=== PATIENT | male | born 1940 | race Caucasian/White ===

== ENCOUNTER 2016-06-18 18:25 | Emergency (ER) | payer MEDICARE, OTHER ==
[2016-06-18 18:34] VITALS: RESP 18
--- NOTE | 2016-06-18 18:35 | ED ---
General Adult HPI - General Chief complaint: Fall Stated complaint: Fall Time Seen by Provider: 06/18/16 18:30 Source: patient, RN notes reviewed, old records reviewed Mode of arrival: EMS Limitations: no limitations - History of Present Illness Initial comments: This is a 76-year-old male ER for evaluation. Patient coming in the air status. Infold snow. Patient was walking to his car and tripped on some ice, did fall forward hitting right arm trying to catch himself and landing on his face. Patient complains of facial pain and mild headache and bleeding from his lip. No displaced teeth, no loss of consciousness no blood thinners - Related Data Home Medications Medication Instructions Recorded Confirmed Aspirin 325 mg PO DAILY 06/18/16 06/18/16 Atenolol [Tenormin] 25 mg PO BID 06/18/16 06/18/16 Atorvastatin [Lipitor] 20 mg PO HS 06/18/16 06/18/16 Esomeprazole Magnesium [NexIUM] 40 mg PO DAILY 06/18/16 06/18/16 Losartan/Hydrochlorothiazide 1 tab PO HS 06/18/16 06/18/16 [Losartan-Hctz 100-25 mg Tab] Allergies Allergy/AdvReac Type Severity Reaction Status Date / Time midazolam [From Versed] Allergy Rash/Hives Verified 06/18/16 18:34 Review of Systems ROS Statement: Those systems with pertinent positive or pertinent negative responses have been documented in the HPI. ROS Other: All systems not noted in ROS Statement are negative. Past Medical History Past Medical History: Hypertension, Seizure Disorder History of Any Multi-Drug Resistant Organisms: None Reported Past Surgical History: Coronary Bypass/CABG Past Psychological History: No Psychological Hx Reported Smoking Status: Former smoker Past Alcohol Use History: None Reported Past Drug Use History: None Reported General Exam Limitations: no limitations General appearance: alert, in no apparent distress Head exam: Present: atraumatic, normocephalic, normal inspection Eye exam: Present: normal appearance, PERRL, EOMI. Absent: scleral icterus, conjunctival injection, periorbital swelling ENT exam: Present: normal exam, mucous membranes moist Neck exam: Present: normal inspection. Absent: tenderness, meningismus, lymphadenopathy Respiratory exam: Present: normal lung sounds bilaterally. Absent: respiratory distress, wheezes, rales, rhonchi, stridor Cardiovascular Exam: Present: regular rate, normal rhythm, normal heart sounds. Absent: systolic murmur, diastolic murmur, rubs, gallop, clicks GI/Abdominal exam: Present: soft, normal bowel sounds. Absent: distended, tenderness, guarding, rebound, rigid Extremities exam: Present: normal inspection, full ROM, normal capillary refill. Absent: tenderness, pedal edema, joint swelling, calf tenderness Back exam: Present: normal inspection Neurological exam: Present: alert, oriented X3, CN II-XII intact Psychiatric exam: Present: normal affect, normal mood Skin exam: Present: warm, dry, intact, normal color. Absent: rash Course Vital Signs 06/18/16 06/18/16 18:29 20:36 Temperature 97.3 F L Pulse Rate 67 93 Respiratory 18 18 Rate Blood Pressure 167/77 140/82 O2 Sat by Pulse 98 97 Oximetry Procedures - Laceration Laceration #1 Consent Obtained: verbal consent Time Out Performed: Yes Indication: laceration Site: lip Size (cm): 1 Description: linear Depth: simple, single layer Anesthetic Used: lidocaine 1% Pre-repair: irrigated extensively Type of Sutures: vicryl Size of Sutures: 4-0 Technique: simple, interrupted Patient Tolerated Procedure: well Medical Decision Making - Medical Decision Making Signed formality here for evaluation of fall, facial injury, closed head injury , no loss of consciousness, CT negative, lip laceration is repaired and patient can be discharged home - Radiology Data Radiology results: report reviewed (CT brain suicide patient was negative for injury, x-ray right wrist right hand negative for fracture), image reviewed Disposition Clinical Impression: Fall, Head injury, Lip laceration Disposition: HOME SELF-CARE Condition: Good Instructions: Fall Prevention for Older Adults (ED) Referrals: Evan Matthews MD [Primary Care Provider] - 1-2 days
--- NOTE | 2016-06-18 19:54 | CT ---
EXAMINATION TYPE: CT brain elizabeth wo con DATE OF EXAM: 06/18/2016 7:44 PM COMPARISON: 08/03/2009 HISTORY: PT STATES OF FALL TODAY. NO LOC. LACERATION TO MAXILLA AREA. CT DLP: 1955.3 mGycm Automated exposure control for dose reduction was used. TECHNIQUE: CT scan of the head and cervical spine are performed without contrast. FINDINGS: There is mild cerebral cortical atrophy. There is no mass effect nor midline shift. There is no sign of intracranial hemorrhage. There is patchy hypodensity in the periventricular white josé er. The calvarium is intact. Cervical vertebra have normal alignment. There is mild degenerative disc space narrowing from C4 to C 7 with some spurring of the endplates. There is mild facet arthropathy in the mid and lower cervical spine. I see no fracture. Skull base is intact. IMPRESSION: There is cerebral atrophy and chronic small vessel ischemia but shows some progression compared to . No acute intracranial abnormality. No fracture. Spondylotic changes in the cervical spine. No fracture seen.
--- NOTE | 2016-06-18 19:57 | CT ---
EXAMINATION TYPE: CT facial bones wo con DATE OF EXAM: 06/18/2016 7:44 PM COMPARISON: 10/10/2011 HISTORY: PT STATES OF FALL TODAY. NO LOC. LACERATION TO MAXILLA AREA. CT DLP: 1955.3 mGycm Automated exposure control for dose reduction was used. TECHNIQUE: CT scan of the sinuses is performed without contrast, axial images are obtained, coronal r eformatted images are also reviewed. FINDINGS: The mandibular ring is intact. Nasal bone appears intact. Zygomatic arches appear normal. The orbital margins appear intact. There is no evidence of blowout fracture. There is fairly normal a eration of the paranasal sinuses. Maxilla is intact. IMPRESSION: Negative CT scan of the facial bones. No fracture.
[2016-06-18] MEDS ORDERED: MORPHINE SULFATE 10 MG/ML SYRINGE IM STA (20:08)
--- NOTE | 2016-06-18 20:37 | XR ---
EXAMINATION TYPE: XR chest 1V DATE OF EXAM: 06/18/2016 8:33 PM COMPARISON: 08/03/2009 HISTORY: Chest pain TECHNIQUE: Single frontal view of the chest is obtained. FINDINGS: Heart and mediastinum are normal. Lungs are clear of infiltrate. There is no heart failure . There are sternal wires. Costophrenic angles are clear. IMPRESSION: No active cardiopulmonary disease. No change.
--- NOTE | 2016-06-18 20:39 | XR ---
EXAMINATION TYPE: XR hand complete RT DATE OF EXAM: 06/18/2016 8:33 PM COMPARISON: NONE HISTORY: Pain TECHNIQUE: 3 views FINDINGS: I see no fracture nor dislocation. Metacarpals are intact. There are no erosions. There is mild vascular calcification. IMPRESSION: No acute abnormality of the right hand.
--- NOTE | 2016-06-18 20:40 | XR ---
EXAMINATION TYPE: XR wrist complete RT DATE OF EXAM: 06/18/2016 8:33 PM COMPARISON: NONE HISTORY: Pain TECHNIQUE: 4 views FINDINGS: I see no fracture nor dislocation. Carpal bones are intact. Joint spaces are fairly normal. There is vascular calcification. IMPRESSION: Negative right wrist exam.
--- NOTE | 2016-06-18 20:41 | XR ---
EXAMINATION TYPE: XR pelvis AP view DATE OF EXAM: 06/18/2016 8:33 PM COMPARISON: NONE HISTORY: Pain TECHNIQUE: Single view FINDINGS: Pelvic ring is intact. Proximal femurs and hip joints are intact. Sacroiliac joints appear normal. There are multiple vascular surgical clips on the left side. IMPRESSION: No fracture.
[2016-06-18 21:21] VITALS: BP 134/74; PULSE 74; TEMP 96.9
== END 2016-06-18 21:21 | disposition home or self-care (01) ==
LOC: EC 18:25
DX: S01.511A Laceration without foreign body of lip, initial encounter (principal); I10 Essential (primary) hypertension; Z95.1 Presence of aortocoronary bypass graft; Z88.8 Allergy status to other drugs, medicaments and biological substances; Z87.891 Personal history of nicotine dependence; Z79.82 Long term (current) use of aspirin; Z79.899 Other long term (current) drug therapy; W01.0XXA Fall on same level from slipping, tripping and stumbling without subsequent striking against object, initial encounter
CPT/HCPCS: 99284; 96372; 12011; 71010; 72170; 73110; 73130; 72125; 70486; 70450; J2270

== ENCOUNTER → 2017-08-18 | Outpatient (CLI) | payer MEDICARE, OTHER ==
--- NOTE | 2017-08-18 12:53 | XR ---
EXAMINATION TYPE: XR chest 2V DATE OF EXAM: 08/18/2017 COMPARISON: 06/18/2016 TECHNIQUE: PA and lateral views submitted. HISTORY: Cough FINDINGS: The lungs are clear and there is no pneumothorax, pleural effusion, or focal pneumonia. Postsurgica l changes noted. Diffuse osteopenia with arthropathy of the shoulders. Partial eventration of the rig ht hemidiaphragm. Degenerative change of the spine. IMPRESSION: 1. No acute process.
== END | disposition home or self-care (01) ==
LOC: RADXRMAIN 12:17
PROVIDERS: ATTEND Family Medicine
DX: R06.02 Shortness of breath (principal)
CPT/HCPCS: 71046

== ENCOUNTER → 2017-10-01 | Outpatient (CLI) | payer MEDICARE, OTHER | LOC: PTMAIN 09:46 | PROVIDERS: ATTEND Otolaryngology | DX: K21.9 Gastro-esophageal reflux disease without esophagitis (principal) | CPT/HCPCS: 31579 ==

== ENCOUNTER 2018-06-04 08:27 | Emergency (ER) | payer MEDICARE, OTHER ==
[2018-06-04 08:40] VITALS: BP 158/90; PULSE 71; RESP 18; TEMP 97.9
--- NOTE | 2018-06-04 09:15 | ED ---
General Adult HPI - General Chief complaint: Head Injury Stated complaint: HEAD INJURY FROM FALL Time Seen by Provider: 06/04/18 08:42 Source: patient, RN notes reviewed, old records reviewed Mode of arrival: ambulatory Limitations: no limitations - History of Present Illness Initial comments: Patient is a 78-year-old male who presents emergency department today after falling off a six-foot ladder while cutting tree limbs. He reports this happened on , 2 days ago. Patient states that yesterday he followed up with Dr. Quispe who examined his elbow and arm. His main complaint was right elbow pain. He had x-rays done at their office and these were all negative for fractures. He is some couple small superficial abrasions are" Band -Aids over the arm. Patient was encouraged to come to emergency department at that time however Patient stated he would like to wait and came this morning. Patient states that he has been having headache at night and pain when resting his head back. He reports that he fells completely on his back. He denies any vomiting episodes. He reports he may have had a brief loss consciousness. He denies any neck pain. - Related Data Home Medications Medication Instructions Recorded Confirmed Atenolol [Tenormin] 25 mg PO BID 06/18/16 06/04/18 Atorvastatin [Lipitor] 20 mg PO HS 06/18/16 06/04/18 Losartan/Hydrochlorothiazide 1 tab PO HS 06/18/16 06/04/18 [Losartan-Hctz 100-25 mg Tab] Aspirin EC [Ecotrin Low Dose] 81 mg PO DAILY 06/04/18 06/04/18 Previous Rx's Medication Instructions Recorded Acetaminophen Tab [Tylenol Tab] 500 mg PO Q6H #20 tablet 06/04/18 Meclizine [Antivert] 25 mg PO TID #20 tab 06/04/18 Ondansetron HCl [Zofran] 4 mg PO TID #12 tablet 06/04/18 Allergies Allergy/AdvReac Type Severity Reaction Status Date / Time midazolam [From Versed] Allergy Rash/Hives Verified 06/04/18 09:26 Review of Systems ROS Statement: Those systems with pertinent positive or pertinent negative responses have been documented in the HPI. ROS Other: All systems not noted in ROS Statement are negative. Past Medical History Past Medical History: Hypertension, Seizure Disorder History of Any Multi-Drug Resistant Organisms: None Reported Past Surgical History: Coronary Bypass/CABG Past Psychological History: No Psychological Hx Reported Smoking Status: Former smoker Past Alcohol Use History: None Reported Past Drug Use History: None Reported General Exam - General Exam Comments Initial Comments: Well-appearing alert and oriented 78-year-old male. No significant distress. Alert and active. Limitations: no limitations General appearance: alert, in no apparent distress Head exam: Present: atraumatic, normocephalic, normal inspection, other ( Tenderness over the posterior scalp. Small abrasion that is scarred and healed at this time. No significant hematoma noted.) Eye exam: Present: normal appearance, PERRL, EOMI. Absent: scleral icterus, conjunctival injection, periorbital swelling ENT exam: Present: normal exam Neck exam: Present: normal inspection. Absent: tenderness, meningismus, lymphadenopathy Respiratory exam: Present: normal lung sounds bilaterally. Absent: respiratory distress, wheezes, rales, rhonchi, stridor Cardiovascular Exam: Present: regular rate, normal rhythm, normal heart sounds. Absent: systolic murmur, diastolic murmur, rubs, gallop, clicks GI/Abdominal exam: Present: soft, normal bowel sounds. Absent: distended, tenderness, guarding, rebound, rigid Extremities exam: Present: normal inspection, full ROM, normal capillary refill. Absent: tenderness, pedal edema, joint swelling, calf tenderness Back exam: Present: normal inspection Neurological exam: Present: alert, oriented X3, CN II-XII intact Psychiatric exam: Present: normal affect, normal mood Course Vital Signs 06/04/18 08:33 Temperature 97.9 F Pulse Rate 71 Respiratory 18 Rate Blood Pressure 158/90 O2 Sat by Pulse 99 Oximetry Medical Decision Making - Medical Decision Making Patient is 78-year-old male presents today he is up-to-date on his foot ladder. He complains of posterior head pain with putting his head on the pillow to sleep. The same Patient has no neck pain. Lungs are clear to auscultation. Abdomen is soft and nontender. No bruising noted. Also claims of some lower back pain. Active lumbar spine is completely negative for any acute process. Computed tomography scan is negative for any acute cranial abnormalities. Patient CT didn't have fluid within the bilateral mastoid air cells. However Patient has no mastoid tenderness. His TMs were normal, no blood. He has no significant bruising over his back, face neck or upper or lower extremities. He is alert and oriented. I discussed this time Patient was treated for head injury and concussion. Motrin Tylenol for pain, as well as continue use dizzy medication, and Zofran for nausea. I discussed the Patient follow-up with regular care provider as well as neurologist. Discussed strict return parameters. All questions answered return parameters were discussed. - Radiology Data Radiology results: report reviewed he fracture dislocation of the lumbar spine. No acute intracranial normality seen. There is moderate to severe patchy and confluent white matter changes are similar in may relate to severe burden of chronic small vessel ischemic disease. No fracture or malalignment of the cervical spine. Similar moderately advanced spondylitic changes above. Fluid trapped in the bilateral inferior mastoid cells. Correlate for any mastoid pain to exclude mastoiditis. Disposition Clinical Impression: Fall, Scalp pain, Lower back pain Disposition: HOME SELF-CARE Condition: Good Instructions: Concussion (ED) Additional Instructions: Patient advised to have any Motrin Tylenol for pain. He can use the nausea medicine and Antivert as needed. Patient could have close follow-up with primary care physician as well as neurology. Return to the emergency department if any alarming signs or symptoms occur. Prescriptions: Acetaminophen Tab [Tylenol Tab] 500 mg PO Q6H #20 tablet Meclizine [Antivert] 25 mg PO TID #20 tab Ondansetron HCl [Zofran] 4 mg PO TID #12 tablet Is patient prescribed a controlled substance at d/c from ED?: No Referrals: Evan Matthews MD [Primary Care Provider] - 1-2 days Time of Disposition: 09:53
--- NOTE | 2018-06-04 09:25 | CT ---
EXAMINATION TYPE: CT brain elizabeth alejandre DATE OF EXAM: 06/04/2018 COMPARISON: 06/18/2016 HISTORY: 78-year-old male with pain, Head injury from fall [address] DLP: 1346.10 mGycm Automated exposure control for dose reduction was used. Technique: Examination of the head was done in axial plane without intravenous contrast. Coronal and sagittal reconstructions performed. CT of the cervical spine was obtained in axial plane without intravenous injection of contrast mater ial. Coronal and sagittal reformatted images were obtained from the axial views for evaluation of f ractures, spinal alignment and canal. FINDINGS: Head: There is no evidence of acute intracranial hemorrhage, acute ischemic changes, mass, mass-effect, or extra-axial fluid collection. There is no effacement of cerebral sulci or basal subarachnoid cister ns. There is no hydrocephalus. There is no midline shift. Murguia-white matter distinction is preserv ed. Benign basal ganglia calcifications on the left are unchanged. Moderate to severe patchy and confluen t white matter hypodensities in both cerebral hemispheres with old lacunar infarcts in the right caud ate head redemonstrated. Trapped fluid in the bilateral inferior mastoid air cells. Slight rightward nasal septal deviation. O rbits and globes appear intact. No calvarial fracture. Cervical spine: No craniocervical junction abnormality, predental space widening, or prevertebral soft tissue swellin g. Degenerative changes at the C1 dens articulation. Straightening of the normal cervical lordosis in the lower cervical spine. Otherwise, alignment is ma intained. No acute fracture seen. Moderate to advanced disc/endplate degenerative change particularly from C4 through C7 levels with di scussed by complex formation causing variable mild spinal canal stenoses throughout. Facet and uncovertebral joint arthropathy is present, particularly on the left. Changes result in mil [id number] left neuroforaminal stenosis at C2-C3, moderate to severe left neuroforaminal stenosis at C3-C4, severe left and moderate to severe right neuroforaminal stenosis at C4-C5, [id number] right neuroforaminal stenosis at C5-C6, moderate to severe right and moderate left neuroforaminal st enosis at C6-C7. Sagittal and coronal reformatted images confirm above findings. COMBINED IMPRESSION: 1. No acute intracranial abnormality seen. Moderate to severe patchy and confluent white matter claros es are similar and may relate to severe burden of chronic small vessel ischemic disease. 2. No acute fracture or malalignment of the cervical spine. Similar moderately advanced spondylotic c hanges above. 3. Fluid trapped in the bilateral inferior mastoid air cells. Correlate for any mastoid pain to exclu de mastoiditis.
--- NOTE | 2018-06-04 09:32 | XR ---
EXAMINATION TYPE: XR lumbar spine 2 or 3V DATE OF EXAM: 06/04/2018 CLINICAL HISTORY: pain TECHNIQUE: Three views of the lumbar spine are submitted. COMPARISON: None. FINDINGS: There are 5 lumbar type vertebral bodies identified. The lumbar spine shows satisfactory alignment w ithout evidence of acute fracture or dislocation. Vertebral body heights are within normal limits. Mild degenerative disc space narrowing and spondylosis. The overlying soft tissue appears unremarkab le. IMPRESSION: No acute fracture or dislocation is seen in the lumbar spine. ICD 10 NO FRACTURE, INITIAL EVALUATION
== END 2018-06-04 10:04 | disposition home or self-care (01) ==
LOC: EC 08:27
DX: S06.0X0A Concussion without loss of consciousness, initial encounter (principal); M54.5 Low back pain; S40.819A Abrasion of unspecified upper arm, initial encounter; I10 Essential (primary) hypertension; Z87.891 Personal history of nicotine dependence; Z95.1 Presence of aortocoronary bypass graft; Z79.82 Long term (current) use of aspirin; Z79.899 Other long term (current) drug therapy; Z88.4 Allergy status to anesthetic agent; W11.XXXA Fall on and from ladder, initial encounter; Y93.89 Activity, other specified; Y92.009 Unspecified place in unspecified non-institutional (private) residence as the place of occurrence of the external cause
CPT/HCPCS: 70450; 72100; 72125; 99284

== ENCOUNTER → 2018-07-10 | Outpatient (CLI) | payer MEDICARE, OTHER ==
--- NOTE | 2018-07-10 13:16 | MR ---
EXAMINATION TYPE: MR angio head wo con DATE OF EXAM: 07/10/2018 COMPARISON: Prior MRA habematolel of Ricardo June 17, 2015 and older 09/14/2013 HISTORY: F/u cerebral aneurysm TECHNIQUE: Time of flight images focusing on the [place] of Ricardo were performed without contrast.. 2-D and 3-D postprocessing imaging is performed on MRI scanner and reviewed. FINDINGS: Dominant right vertebral artery is redemonstrated. Vertebral arteries are patent to basilar junction. Stable slight prominence at the basilar tip. No new stenosis or aneurysm is appreciated in the posterior circulation. Hypoplastic bilateral posterior communicating arteries are noted. Images of the anterior circulation show patent anterior communicating artery. There is stable slight lobulation at origin of left M1 segment without new aneurysm. No significant stenosis is seen in the anterior circulation. IMPRESSION: No significant interval change, no new aneurysm is evident.
== END ==
LOC: RADMRIMAIN 12:35
PROVIDERS: ATTEND Psychiatry & Neurology Neurology
DX: I67.1 Cerebral aneurysm, nonruptured (principal)
CPT/HCPCS: 70544

== ENCOUNTER → 2018-09-18 | Outpatient (CLI) | payer MEDICARE, OTHER ==
--- NOTE | 2018-09-18 09:38 | MR ---
EXAMINATION TYPE: MR femur/thigh RT wo con DATE OF EXAM: 09/18/2018 COMPARISON: None. HISTORY: Pain in right thigh / Hematoma after fall injury 1.5 months ago. Pain and swelling lateral s nadine. Standard multiplanar, multisequence MRI departmental protocol Multiplanar, multisequence images of the bilateral thighs were acquired. FINDINGS: At level of proximal to mid diaphysis right femur there is linear low T1 and T2 signal inte rrupting subcutaneous fat seen best coronal image 17 consistent with subcutaneous scar extending supe riorly where there is curvilinear thin walled area of increased T1 and T2 signal measuring 3.8 cm aircraft magneto mechanic niocaudal dimension coronal image 14 x 2.8 cm AP diameter by 0.7 cm transversely axial image 3 that s hows low T1 and T2 rim consistent with methemoglobin and/or resolving focal hematoma given patient's history. Adjacent muscle bulk is preserved without intramuscular hematoma. Bone marrow signal intensity is maintained. Visualized portion of the prostate is grossly unremarkabl e. Poorly distended bladder is seen. Incidental small left scrotal fluid collection or hydrocele post eriorly axial image 6. IMPRESSION: Small thin-walled fluid collection consistent with resolving hematoma in the deep subcuta neous fat abutting outer margin of lateral thigh muscle and adjacent healing subcutaneous scar extend ing inferiorly and laterally.
== END ==
LOC: RADMRIMAIN 07:40
PROVIDERS: ATTEND Orthopaedic Surgery
DX: M79.651 Pain in right thigh (principal); M25.551 Pain in right hip

== ENCOUNTER → 2020-01-26 | Outpatient (CLI) | payer MEDICARE, OTHER ==
--- NOTE | 2020-01-26 11:49 | CT ---
EXAMINATION TYPE: CT brain wo con DATE OF EXAM: 01/26/2020 COMPARISON: 06/04/2018 HISTORY: TIA, dizziness/vertigo CT DLP: 943.8 mGycm Automated exposure control for dose reduction was used. FINDINGS: There is no evidence of acute intracranial hemorrhage, acute ischemic changes , mass, mass-effect, or extra-axial fluid collection. There is no effacement of cerebral sulci or basal subarachnoid cistern s. There is no hydrocephalus. There is no midline shift. Benign basal ganglia calcifications on the l eft are unchanged. Moderate to severe patchy and confluent white matter hypodensities in both cerebral hemispheres with old lacunar infarcts in the right caudate head redemonstrated. Changes of chronic mastoiditis and sin usitis. Slight rightward nasal septal deviation. Orbits and globes appear intact. No calvarial fractu re. 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 CORRE LATE CLINICALLY.
--- NOTE | 2020-01-26 13:07 | US ---
EXAMINATION TYPE: US carotid duplex BILAT DATE OF EXAM: 01/26/2020 COMPARISON: 08/03/1999 CLINICAL HISTORY: R55 Syncope. TIA, dizziness EXAM MEASUREMENTS: RIGHT: Peak Systolic Velocity (PSV) cm/sec ----- Right CCA: 69.6 ----- Right ICA: 82.6 ----- Right ECA: 54.7 ICA/CCA ratio: 1.19 RIGHT: End Diastole cm/sec ----- Right CCA: 28.0 ----- Right ICA: 39.8 ----- Right ECA: 54.7 LEFT: Peak Systolic Velocity (PSV) cm/sec ----- Left CCA: 95.7 ----- Left ICA: 80.1 ----- Left ECA: 85.1 ICA/CCA ratio: 0.84 LEFT: End Diastole cm/sec ----- Left CCA: 35.4 ----- Left ICA: 30.4 ----- Left ECA: 18.6 VERTEBRALS (direction of flow): Right Vertebral: Antegrade Left Vertebral: Antegrade Rhythm: Normal Mild plaque bilateral bifurcations. No evidence of increased velocities IMPRESSION: 1. Mild atherosclerotic plaque bilaterally with no evidence of significant hemodynamic stenosis. Criteria for Assigning % of Stenosis / Diameter reduction (Estimation based on the indirect measurements of the internal carotid artery velocities (ICA PSV). 1. Normal (no stenosis)=ICA PSV < 125 cm/s: ratio < 2.0: ICA EDV<40 cm/s. 2. Less than 50% stenosis=ICA PSV < 125 cm/s: ratio < 2.0: ICA EDV<40 cm/s. 3. 50 to 69% stenosis=ICA PSV of 125 to 230 cm/s: ration 2.0 ? 4.0: ICA EDV 40-100 cm/s. 4. Greater than 70% stenosis to near occlusion= ICA PSV > 230 cm/s: ratio > 4.0: ICA EDV > 100 cm/s. 5. Near occlusion= ICA PSV velocities may be low or undetectable: variable ratio and ICA EDV. 6. Total occlusion=unable to detect flow.
== END | disposition home or self-care (01) ==
LOC: RADCTMAIN 11:12
PROVIDERS: ATTEND Family Medicine
DX: G31.89 Other specified degenerative diseases of nervous system (principal); G45.8 Other transient cerebral ischemic attacks and related syndromes
CPT/HCPCS: 70450; 93880

== ENCOUNTER → 2021-05-30 | Outpatient (CLI) | payer MEDICARE, OTHER ==
--- NOTE | 2021-05-30 21:12 | CT ---
EXAMINATION TYPE: CT brain wo con DATE OF EXAM: 05/30/2021 COMPARISON: CT brain 01/26/2020 HISTORY: multiple syncopal episodes, dizziness. CT DLP: 999.8 mGycm Automated exposure control for dose reduction was used. Helical imaging through the brain. FINDINGS: There are cerebral vascular calcifications present. Cortical atrophy is again noted. White matter low -attenuation is again seen similar to prior exam. There is no hemorrhage or hydrocephalus. Basal gang sadi calcifications are present Calvarium is intact. There is inflammatory change present within the m astoid air cells bilaterally. Orbits show symmetric appearance. IMPRESSION: AGE-RELATED CHANGES OF ATROPHY AND PROBABLE CHRONIC SMALL VESSEL ISCHEMIA, MASTOIDITIS MAY BE PRESENT BILATERALLY CORRELATE
== END | disposition home or self-care (01) ==
LOC: RADCTMAIN 17:33
PROVIDERS: ATTEND Family Medicine
DX: G31.9 Degenerative disease of nervous system, unspecified (principal)
CPT/HCPCS: 70450

== ENCOUNTER → 2021-08-30 | Outpatient (CLI) | payer MEDICARE, OTHER ==
[2021-08-30 14:57] LABS: African American GFR (CKD) 57.5 (60.0-200.0); Anion Gap 14.6 mmol/L (10.00-18.00); BUN/Creat Ratio 18.3 Ratio (12.00-20.00); Blood Urea Nitrogen 24.7 mg/dL (9.0-27.0); Calcium 9.5 mg/dL (8.7-10.3); Carbon Dioxide 22.2 mmol/L (20.0-27.5); Non-African American GFR(CKD) 49.6 (60.0-200.0); Potassium 4.2 mmol/L (3.5-5.5)
[2021-08-30 15:07] LABS: Basophils # (A) 0.05 X 10*3/uL (0.00-0.10); Basophils % (A) 0.6 %; Eosinophils # (A) 0.69 X 10*3/uL (0.04-0.35); Eosinophils % (A) 7.9 %; HCT 40.4 % (39.6-50.0); HGB 13.3 g/dL (13.0-17.0); Immature Grans, Automated 0.3 %; Lymphocytes # (A) 2.06 X 10*3/uL (0.90-5.00); Lymphocytes % (A) 23.7 %; MCH 31.4 pg (27.0-32.0); MCHC 32.9 g/dL (32.0-37.0); MCV 95.3 fL (80.0-97.0); Mean Platelet Volume 10.1 fL (9.5-12.2); Monocytes % (A) 10.4 %; NRBC Per 100 WBC 0 /100 WBCS (0.0-0.0); Neutrophils # (A) 4.95 X 10*3/uL (1.80-7.70); Neutrophils % (A) 57.1 %; Platelet Count 251 X 10*3/uL (140-440); RBC 4.24 X 10*6/uL (4.40-5.60); RDW 11.9 % (11.5-14.5); WBC 8.68 X 10*3/uL (4.50-10.00)
== END | disposition home or self-care (01) ==
LOC: LABWHC1 08:31
PROVIDERS: ATTEND Urology
DX: Z01.812 Encounter for preprocedural laboratory examination (principal); N40.1 Benign prostatic hyperplasia with lower urinary tract symptoms
CPT/HCPCS: 36415; 80048; 85025

== ENCOUNTER 2021-09-06 08:07 | Day surgery (SDC) | payer MEDICARE, OTHER ==
[2021-08-30 10:05] VITALS: BMI 25.7
--- NOTE | 2021-09-05 06:00 | P.GSHP ---
History of Present Illness H&P Date: 09/05/21 Chief Complaint: Weak urinary stream The patient is a 81-year-old white male with voiding symptoms. Specifically, he reports a weak urinary stream, hesitancy, intermittency, and straining to void. Prostate ultrasound revealed a prostate volume of 34 mL. Prostate biopsies were negative. Urinary flow studies show a marginally diminished urinary stream with incomplete bladder emptying. Cystoscopy shows BPH. He was offered the options of Urolift versus transurethral resection of the prostate (TURP), as he was unable to tolerate alpha blockers. He has elected to undergo a TURP. - Cardiovascular Cardiovascular: Reports high blood pressure - Genitourinary (Male) Genitourinary: Reports as per HPI Past Medical History Past Medical History: Cancer, GERD/Reflux, Hypertension, Prostate Disorder, Seizure Disorder Additional Past Medical History / Comment(s): occ migraines, 02/2010-one seizure(no current rx), hx TIA'S-no residual effects, "sliding hiatal hernia", urinary leakage, hx skin cancer History of Any Multi-Drug Resistant Organisms: None Reported Past Surgical History: Appendectomy, Coronary Bypass/CABG, Heart Catheterization, Orthopedic Surgery Additional Past Surgical History / Comment(s): removal of skin cancer from face, CABG 2003-triple bypass, demond cataracts, reconstruction left ankle, Past Anesthesia/Blood Transfusion Reactions: No Reported Reaction Smoking Status: Former smoker - Past Family History Mother Family Medical History: No Reported History Medications and Allergies Home Medications Medication Instructions Recorded Confirmed Type Atorvastatin [Lipitor] 20 mg PO DAILY 06/18/16 08/30/21 History atenoloL [Tenormin] 25 mg PO BID 06/18/16 08/30/21 History Aspirin EC [Ecotrin Low Dose] 81 mg PO DAILY 06/04/18 08/30/21 History Hydrochlorothiazide 12.5 mg PO QAM 08/30/21 08/30/21 History [hydroCHLOROthiazide] Olmesartan/Hydrochlorothiazide 1 each PO QAM 08/30/21 08/30/21 History [Olmesartan-Hctz 40-25 mg Tab] RABEprazole SODIUM [Aciphex] 20 mg PO QAM 08/30/21 08/30/21 History Sucralfate [Carafate] 1 gm PO 08/30/21 08/30/21 History Allergies Allergy/AdvReac Type Severity Reaction Status Date / Time meperidine [From Demerol] Allergy Rash/Hives Verified 08/30/21 09:51 Surgical - Exam - General well developed, well nourished, no distress - Neck no masses, trachea midline - Respiratory normal respiratory effort - Abdomen Abdomen: soft, non tender, no guarding, no rigid, no rebound - Genitourinary normal penis with no external lesions, testicles non-tender - Rectum Rectum: normal sphincter tone, no masses, other (Prostate mildly enlarged, firm but smooth) - Psychiatric oriented to time, oriented to person, oriented to place, speech is normal, memory intact Assessment and Plan (1) Benign prostatic hyperplasia with lower urinary tract symptoms Status: Acute Code(s): N40.1 - BENIGN PROSTATIC HYPERPLASIA WITH LOWER URINARY TRACT SYMP SNOMED Code(s): 718893918 Plan: Cystoscopy, TURP. The procedure has been reviewed in detail. The anticipated perioperative course was reviewed, as were potential risks. These include anesthesia, bleeding, infection, retrograde ejaculation, incontinence, erectile dysfunction, and vesical neck contracture.
[~2021-09-06 08:07] MED LIST: DEXAMETHASONE SOD PHOSPHATE 4 MG/ML 1 ML VIAL IV ONE; LACTATED RINGERS 1,000 ML IV SCH; ONDANSETRON 4 MG/2 ML VIAL IVP ONE
[2021-09-06 08:30] VITALS: TEMP 97
[2021-09-06] MEDS ORDERED: LACTATED RINGERS 1,000 ML IV ONE ×2 (08:44→10:30)
[2021-09-06] MEDS ORDERED: PHENYLEPHRINE-0.9% NACL SYG 1,000 MCG/10 ML SYRINGE ONE (09:24)
[2021-09-06] MEDS ORDERED: SUCCINYLCHOLINE CHLORIDE 100 MG/5 ML SYR IV ONE (09:24)
[2021-09-06] MEDS ORDERED: PROPOFOL 10 MG/ML 20 ML VIAL IV ONE (09:24)
[2021-09-06] MEDS ORDERED: LIDOCAINE 1% INJ 10MG/ML (20 ML MDV) ONE (09:24)
[2021-09-06] MEDS ORDERED: fentaNYL (PF) 50 MCG/ML 2 ML AMP ONE (09:24)
[2021-09-06] MEDS ORDERED: MIDAZOLAM 2 MG/2 ML VIAL ONE (09:24)
[2021-09-06 11:10] VITALS: RESP 16
[2021-09-06] MEDS: HYDROmorphone 0.5 MG/0.5 ML SYRINGE IVP PRN ×2 (11:18→11:26)
--- NOTE | 2021-09-06 11:18 | P.OP ---
Date of Procedure: 09/06/21 Preoperative Diagnosis: BPH with obstruction Postoperative Diagnosis: Same Procedure(s) Performed: Cystoscopy, bipolar transurethral resection of prostate (TURP) Anesthesia: ROHAN Surgeon: Riky Perez Estimated Blood Loss (ml): 30 IV fluids (ml): 900 Pathology: other (Prostate chips) Condition: stable Disposition: PACU Indications for Procedure: The patient is a 81-year-old white male with voiding symptoms. Specifically, he reports a weak urinary stream, hesitancy, intermittency, and straining to void. Prostate ultrasound revealed a prostate volume of 34 mL. Prostate biopsies were negative. Urinary flow studies show a marginally diminished urinary stream with incomplete bladder emptying. Cystoscopy shows BPH. He was offered the options of Urolift versus transurethral resection of the prostate (TURP), as he was unable to tolerate alpha blockers. He has elected to undergo a TURP. Operative Findings: Obstructing bilobar BPH with high median bar. Description of Procedure: The patient was taken in the operating room and placed in the dorsolithotomy position. The external genitalia was prepped and draped sterilely. The 25- [place] ACMI resectoscope sheath was introduced into the bladder. The bladder was inspected. Both ureteral orifices were of normal anatomic location and configuration, and clear urine effluxed from both. No tumors or foreign bodies were seen. Examination of the prostate revealed complete obstruction with a bilobar configuration, as well as a high median bar. Using the bipolar cutting loop, the midline of the floor of the prostate was resected up to the verumontanum. Next, the lateral lobes were resected down to the surgical capsule. The remaining tissue on the floor of the prostate was then resected, proximal to the verumontanum. Next, the remaining anterior tissue was resected. The residual apical tissue was then carefully resected, with care taken to avoid injury to the external urinary sphincter. The resection was carried down to the surgical capsule in all 4 quadrants. A capsular perforation occurred on the right side, and careful attention was paid to this area to control any bleeders. The remainder of the prostatic fossa was then carefully examined, and any areas of bleeding were controlled with electrocautery. Excellent hemostasis was attained. The resectoscope was withdrawn into the bulbous urethra. The external urinary sphincter remained intact. The prostatic fossa was open. All prostate chips were removed from the bladder. These were saved and sent for pathologic examination. The resectoscope was removed, and a 20 Armenian Teresa catheter was placed. A catheter guide was used, as the resection was somewhat subtrigonal. The return was clear. The patient tolerated the procedure well was taken to the recovery room in stable condition.
[2021-09-06 12:27] VITALS: BP 129/83; PULSE 58
== END 2021-09-06 12:44 | disposition home or self-care (01) ==
LOC: OR 08:07
PROVIDERS: ATTEND Urology
DX: N40.1 Benign prostatic hyperplasia with lower urinary tract symptoms (principal); N13.8 Other obstructive and reflux uropathy; I10 Essential (primary) hypertension; G40.909 Epilepsy, unspecified, not intractable, without status epilepticus; Z95.1 Presence of aortocoronary bypass graft; E78.5 Hyperlipidemia, unspecified; I25.10 Atherosclerotic heart disease of native coronary artery without angina pectoris; E78.00 Pure hypercholesterolemia, unspecified; R55 Syncope and collapse; K21.9 Gastro-esophageal reflux disease without esophagitis; Z86.73 Personal history of transient ischemic attack (TIA), and cerebral infarction without residual deficits; Z98.42 Cataract extraction status, left eye; Z98.41 Cataract extraction status, right eye; Z85.828 Personal history of other malignant neoplasm of skin; Z79.82 Long term (current) use of aspirin; Z79.899 Other long term (current) drug therapy; Z88.5 Allergy status to narcotic agent; Z87.891 Personal history of nicotine dependence
CPT/HCPCS: 88305; 52601; J2250; J1100; J0690; J2405; J2001; J3010; J2370; J0330; J2704; J1170

== ENCOUNTER → 2021-10-15 | Outpatient (CLI) | payer MEDICARE, OTHER | END | disposition home or self-care (01) | LOC: LABWHC1 09:42 | PROVIDERS: ATTEND Urology | DX: R97.20 Elevated prostate specific antigen [PSA] (principal) | CPT/HCPCS: 36415; 84153 ==

== ENCOUNTER → 2022-03-28 | Outpatient (CLI) | payer MEDICARE, OTHER ==
--- NOTE | 2022-03-29 07:02 | MR ---
EXAMINATION TYPE: MR angio head wo con DATE OF EXAM: 03/28/2022 COMPARISON: MRA brain July 10, 2018 HISTORY: F/U aneurysm TECHNIQUE: Time of flight images focusing on the [place] of [place] were performed without contrast.. 2-D and 3-D postprocessing imaging is performed on MRI scanner. FINDINGS: There is larger caliber dominant right vertebral artery redemonstrated. Vertebral arteries are patent to basilar junction. There are hypoplastic bilateral posterior communicating arteries rede monstrated. Focal prominence at the basilar tip is unchanged from prior study near axial image 90. No new aneurysm is evident. Patent small caliber and length anterior communicating artery axial image 90. No significant focal st enosis or new aneurysmal change in the anterior circulation. Stable slight prominence at the left M1 origin near image 92 is redemonstrated. IMPRESSION: No significant interval change. No new aneurysm is seen.
== END | disposition home or self-care (01) ==
LOC: RADMRIMAIN 07:57
PROVIDERS: ATTEND Psychiatry & Neurology Neurology
DX: I67.1 Cerebral aneurysm, nonruptured (principal)
CPT/HCPCS: 70544

== ENCOUNTER → 2023-09-30 | Outpatient (CLI) | payer MEDICARE, OTHER ==
[2023-09-30 16:58] LABS: Partial Thromboplastin Time 25.6 sec (22.0-30.0); Prothrombin Time 11.3 sec (10.0-12.5)
[2023-09-30 19:04] LABS: Basophils # (A) 0.03 X 10*3/uL (0.00-0.10); Basophils % (A) 0.4 %; Eosinophils # (A) 0.31 X 10*3/uL (0.04-0.35); Eosinophils % (A) 3.8 %; HCT 39.9 % (39.6-50.0); HGB 13.2 g/dL (13.0-17.0); Lymphocytes # (A) 1.99 X 10*3/uL (0.90-5.00); Lymphocytes % (A) 24.4 %; MCH 32.9 pg (27.0-32.0); MCHC 33.1 g/dL (32.0-37.0); MCV 99.5 FL (80.0-97.0); Mean Platelet Volume 9.8 FL (9.5-12.2); Monocytes # (A) 0.57 X 10*3/uL (0.20-1.00); NRBC Per 100 WBC 0 X 10*3/uL (0.00-0.01); Neutrophils # (A) 5.22 X 10*3/uL (1.80-7.70); Platelet Count 284 X 10*3/uL (140-440); RBC 4.01 X 10*6/uL (4.40-5.60); RDW 11.4 % (11.5-14.5); WBC 8.15 X 10*3/uL (4.50-10.00)
[2023-09-30 20:56] LABS: ALT 14 U/L (10-49); AST 26 U/L (14-35); Albumin 4.2 g/dL (3.8-4.9); Alkaline Phosphatase 87 U/L (41-126); Blood Urea Nitrogen 18.6 mg/dL (9.0-27.0); Calcium 9.7 mg/dL (8.7-10.3); Carbon Dioxide 23.8 mmol/L (21.6-31.8); Chloride 100 mmol/L (96-109); Glucose 218 mg/dL (70-110); Potassium 3.9 mmol/L (3.5-5.5); Sodium 137 mmol/L (135-145); Total Bilirubin 0.8 mg/dL (0.3-1.2); Total Protein 7.2 g/dL (6.2-8.2)
== END | disposition home or self-care (01) ==
LOC: LABWHC1 15:40
PROVIDERS: ATTEND Neurological Surgery
DX: Z01.812 Encounter for preprocedural laboratory examination (principal); M48.062 Spinal stenosis, lumbar region with neurogenic claudication
CPT/HCPCS: 36415; 80053; 83036; 85025; 85610; 85730